=== PATIENT | male | born 2000 | race Caucasian/White ===

== ENCOUNTER 2021-07-31 06:22 | Emergency (ER) | payer BC, SELFPAY ==
[2021-07-31] VITALS (8 sets, daily range): BP systolic 145–164; BP diastolic 83–106; PULSE 76–107; RESP 13–29; TEMP 36.6; O2SAT 97–100
--- NOTE | 2021-07-31 06:28 | ECG_ITS ---
Measurements Intervals [place] Rate: 90 P: 60 ME: 142 QRS: 40 QRSD: 89 T: 32 QT: 338 QTc: 415 Interpretive Statements SINUS RHYTHM INCOMPLETE RIGHT BUNDLE BRANCH BLOCK BASELINE ARTIFACT- I, II, III, AVR, AVF, V1-V6 BORDERLINE ECG Electronically Signed On 08-01-2021 11:55:01 [employer]PER[employer] by Obdulio Blount D.O.
--- NOTE | 2021-07-31 06:40 | PC.NURSE ---
Called Poison Control at this time and spoke to Prashanth putnam pharmacist - states this is a hallucinogenic and current brand of heavenly blue is reliably toxic. Dose is equivalent to LSD, may have N/V, hallucinations, agitation, dilated pupils, confusion, salivation, sweating, diarrhea, AMS, mood fluctuations, dizziness. No cardiac concerns, watch for [employer] depression. Treat symptoms including antiemetics, fluids, Benzo's for hallucinations. Monitor VS. EKG read and DC, QRS, QT/QTc are all WNL. Does not have specific papers to fax for recommendations, but will call back for follow up on pt status.
[2021-07-31] MEDS: ONDANSETRON INJ 4 MG/2 ML VIAL IV PUSH (07:28)
[2021-07-31] MEDS: SODIUM CHLORIDE 0.9% IV 1,000 ML 999 ML IV CONT (07:28)
[2021-07-31 07:35] LABS: Basophils Percent Auto 0.2 % (0.2-1.2); Eosinophils Percent Auto 0.1 % (0-4.4); Hematocrit 44.8 % (42.0-52.0); Hemoglobin 16.3 g/dL (14.0-18.0); Immature Granulocyte Absolute 0.04 K/mm3 (0.00-0.031); Immature Granulocyte Percent A 0.4 % (0-0.5); Lymphocytes Absolute Auto 1.11 K/mm3 (0.9-3.2); Lymphocytes Percent Auto 11.3 % (18.3-44.2); Mean Corpuscular HGB Conc 36.4 g/dl (32-36); Mean Corpuscular Hemoglobin 30.8 pg (26-34); Mean Corpuscular Volume 84.5 fl (80-100); Mean Platelet Volume 9.7 fl (7.4-10.4); Monocytes Absolute Auto 0.4 K/mm3 (0.1-0.6); Monocytes Percent Auto 3.7 % (2.6-8.5); Neutrophils Absolute Auto 8.3 K/mm3 (1.3-6.7); Neutrophils Percent Auto 84.3 % (45.5-73.1); Platelet Count Result 207 k/mm3 (150-375); Red Cell Distribution Width 11.4 % (11.5-14.5); White Blood Count 9.8 K/mm3 (4.5-10.0)
[2021-07-31 07:52] LABS: Alanine Aminotransferase 21 U/L (4-50); Albumin Level 4.8 g/dL (3.5-5.1); Alkaline Phosphatase 69 U/L (38-126); Anion Gap 11 mmol/L (8-16); Aspartate Amino Transferase 30 U/L (17-59); Bilirubin,Total 0.7 mg/dL (0.2-1.3); Blood Urea Nitrogen 17 mg/dL (9-20); Calcium 9.7 mg/dL (8.4-10.2); Carbon Dioxide 26 mmol/L (22-30); Chloride 102 mmol/L (98-107); Estimated CRCL calculation 89 ml/min; Estimated Glomerular Filt Rate > 60; Glucose 117 mg/dL (65-110); Lipase 71 U/L (23-300); Potassium 3.6 mmol/L (3.4-5.0); Sodium 139 mmol/L (137-145)
--- NOTE | 2021-07-31 07:53 | ED.GENADULT ---
HPI - General Adult General Chief complaint: Overdose Stated complaint: nausea Time Seen by Provider: 07/31/21 07:03 History of Present Illness HPI narrative: Patient is a 18-year-old male who presents ER with nausea and anxiety. Patient ingested 250 mg of morning glory seeds and attempt to get high because he did not have access to hallucinogenic mushrooms. He was not making an attempt on his own life. Reports he is having a lot of nausea and is concerned there is something wrong with his insides and his roommates called EMS. No pain at this time. Reports nausea is improving. No fevers or chills or sweats. No other coingestants. Related Data Allergies Allergy/AdvReac Type Severity Reaction Status Date / Time No Known Allergies Allergy Verified 07/31/21 06:28 Review of Systems Review of Systems: All systems reviewed & are unremarkable except as noted in HPI and below Constitutional: Constitutional: Denies chills, Denies fever(s) and Denies weakness Cardiovascular: Cardiovascular: Denies chest pain, Denies rapid heart rate and Denies radiating jaw, neck or arm pain Respiratory: Respiratory: Denies cough and Denies dyspnea Gastrointestinal: Gastrointestinal: Denies abdominal pain, Denies diarrhea, Reports nausea and Reports vomiting Neurologic: Denies headache(s), Denies focal weakness and Denies numbness Psychiatric: Psychiatric: Reports anxiety, Denies depression, Denies homicidal ideation and Denies suicidal ideation PMFSH Past Medical History Medical History (Updated 07/31/21 @ 11:23 by Royal Walker MD) Healthy adult male Surgical History Surgical History (Updated 07/31/21 @ 07:55 by Royal Walker MD) No history of previous surgery Social History Social History (Updated 07/31/21 @ 07:55 by Royal Walker MD) Substance use type: hallucinogens Exam Narrative: GENERAL: Well-appearing, well-nourished, and in no acute distress. HEAD: Normocephalic, atraumatic. EYES: PERRL and EOMI. CHEST: Clear to auscultation. No respiratory distress. HEART: Regular rate and rhythm. Normal peripheral pulses. ABDOMEN: Soft, nontender, nondistended. EXTREMITIES: Normal range of motion. No edema. SKIN: Warm, dry, no rash. NEURO: Alert and oriented x3. PSYCH: Normal mood and affect. Course Course Emergency Course: Patient is awake alert and oriented x3. Ambulating with a steady gait. No hallucinations. Nausea improved. Discharge home. Vital Signs Vital signs: Vital Signs Temperature 97.8 F 07/31/21 06:21 Pulse Rate 94 07/31/21 06:21 Respiratory Rate 24 H 07/31/21 06:21 Blood Pressure 163/105 H 07/31/21 06:21 Pulse Oximetry 99 07/31/21 06:21 Temperature 97.8 F 07/31/21 06:21 Pulse Rate 79 07/31/21 09:08 Respiratory Rate 16 07/31/21 09:08 Blood Pressure 147/95 H 07/31/21 09:08 Pulse Oximetry 97 07/31/21 09:08 Medical Decision Making Vital Signs Vital Signs: Vital Signs Temperature 97.8 F 07/31/21 06:21 Pulse Rate 94 07/31/21 06:21 Respiratory Rate 24 H 07/31/21 06:21 Blood Pressure 163/105 H 07/31/21 06:21 Pulse Oximetry 99 07/31/21 06:21 Temperature 97.8 F 07/31/21 06:21 Pulse Rate 79 07/31/21 09:08 Respiratory Rate 16 07/31/21 09:08 Blood Pressure 147/95 H 07/31/21 09:08 Pulse Oximetry 97 07/31/21 09:08 Lab Data Result diagrams: 07/31/21 07:26 07/31/21 07:26 Labs: Lab Results 07/31/21 07/31/21 07/31/21 Range/Units 07:26 07:26 07:26 WBC 9.8 (4.5-10.0) K/mm3 RBC 5.30 (4.6-6.20) M/mm3 Hgb 16.3 (14.0-18.0) g/dL Hct 44.8 (42.0-52.0) % MCV 84.5 (80-100) fl MCH 30.8 (26-34) pg MCHC 36.4 H (32-36) g/dl RDW 11.4 L (11.5-14.5) % Plt Count 207 (150-375) k/mm3 MPV 9.7 (7.4-10.4) fl Immature Gran % (Auto) 0.4 (0-0.5) % Neut % (Auto) 84.3 H (45.5-73.1) % Lymph % (Auto) 11.3 L (18.3-44.2) % [place] % (Auto) 3.7 (2.6-8.5
[2021-07-31 07:56] LABS: Acetaminophen < 10 ug/mL (10-30); Salicylate < 1.0 mg/dL (2-20)
--- NOTE | 2021-07-31 08:28 | PC.NURSE ---
This nurse spoke to poison control and gave an update on the pt status.
[2021-07-31] MEDS: PROMETHAZINE HCL 25 MG/ML AMPUL 12.5 MG IV PUSH (09:05)
== END 2021-07-31 11:28 | disposition home or self-care (01) ==
PROVIDERS: Emergency Provider Emergency Medicine
DX: T40.991A Poisoning by other psychodysleptics [hallucinogens], accidental (unintentional), initial encounter (principal); I45.10 Unspecified right bundle-branch block
CPT/HCPCS: 36415; 80053; 80307; 83690; 85025; 93005; 96361; 96374; 96375; 99284; J2405; J2550; J7030